=== PATIENT | female | born 1965 | race Caucasian/White ===

== ENCOUNTER → 2020-04-28 | Outpatient (CLI) | payer OTHER ==
[~2020-04-28] MED LIST: CARAFATE1 GM PO; ECOTRIN81 MG PO; LOPRESSOR100 MG PO; NORVASC10 MG PO; RANEXA500 MG PO; SYNTHROID112 MCG PO; VITAMIN D-40400 UNIT PO
== END ==
LOC: KOH-I 04-23 14:30
DX: M48.061 Spinal stenosis, lumbar region without neurogenic claudication (principal); M47.816 Spondylosis without myelopathy or radiculopathy, lumbar region; M51.36 Other intervertebral disc degeneration, lumbar region; M51.37 Other intervertebral disc degeneration, lumbosacral region; M48.07 Spinal stenosis, lumbosacral region
CPT/HCPCS: 72148

== ENCOUNTER 2021-03-24 17:43 | Emergency (ER) | payer OTHER ==
[2021-03-24 18:49] LABS: HEMOGLOBIN 14.8 gm/dl (12.3-15.3); RED BLOOD COUNT 4.49 M/UL (4.00-5.10); WHITE BLOOD COUNT 7.1 K/UL (4.5-11.0)
[2021-03-24 19:47] LABS: BUN/CREATININE RATIO 12 (0-10)
[2021-03-24] MEDS ORDERED: MOBIC15 MG PO (22:39)
== END 2021-03-24 22:43 | disposition home or self-care (01) ==
LOC: ER1 17:43
PROVIDERS: Physician Assistant Medical
DX: R07.89 Other chest pain (principal); I10 Essential (primary) hypertension; Z86.73 Personal history of transient ischemic attack (TIA), and cerebral infarction without residual deficits; Z88.0 Allergy status to penicillin; Z88.5 Allergy status to narcotic agent
CPT/HCPCS: 71045; 80053; 82550; 82553; 83874; 83880; 84484; 85025; 93005; 96374; 99285; J1885